=== PATIENT | male | born 1970 | race Caucasian/White ===

== ENCOUNTER → 2023-10-22 14:29 | Outpatient (REF) | payer OTHER, SELFPAY | LOC: HWRAD 14:29 | PROVIDERS: ATTENDING PHYSICIAN Surgery; FAMILY PHYSICIAN Family Medicine | DX: K63.89 Other specified diseases of intestine (principal) | CPT/HCPCS: 74177; Q9967 ==

== ENCOUNTER → 2024-06-17 14:00 | Outpatient (REF) | payer BC, SELFPAY | LOC: HWRAD 14:00 | PROVIDERS: ATTENDING PHYSICIAN Nurse Practitioner Family; FAMILY PHYSICIAN Family Medicine | DX: R10.30 Lower abdominal pain, unspecified (principal) | CPT/HCPCS: 76700; 76856 ==

== ENCOUNTER → 2024-07-07 14:27 | Outpatient (REF) | payer BC, SELFPAY | LOC: RAD 14:27 | PROVIDERS: ATTENDING PHYSICIAN Physician Assistant; FAMILY PHYSICIAN Family Medicine | DX: M25.642 Stiffness of left hand, not elsewhere classified (principal); M25.641 Stiffness of right hand, not elsewhere classified | CPT/HCPCS: 73130 ==

== ENCOUNTER → 2025-03-20 14:40 | Outpatient (REF) | payer BC, SELFPAY | LOC: RAD 14:40 | PROVIDERS: ATTENDING PHYSICIAN Surgery; FAMILY PHYSICIAN Family Medicine | DX: K63.89 Other specified diseases of intestine (principal) | CPT/HCPCS: 71260; 74177; Q9967 ==

== ENCOUNTER 2025-08-28 08:40 | Emergency (ER) | payer BC, SELFPAY ==
--- NOTE | 2025-08-28 09:50 | ED.GENMED ---
History of Present Illness
General
Chief Complaint: Musculo-Skeletal Complaint
Source: patient
Time Seen by Provider: 08/28/25 09:39
History of Present Illness
History of Present Illness:
55-year-old male presents emergency department complaints of left thumb pain for about a week. He works as a pick up truck driver and notes that the pain is gotten progressively worse with certain movements such as trying to button his pants etc. He
denies specific trauma or falls, redness, warmth, drainage, fever, chills, numbness, tingling, swelling, or other complaints. Pain is localized to the thenar eminence and sometimes in the area just between the thumb and first finger at the base of
the thumb extending/radiating on the dorsal aspect of the thumb.
Past History
Past History
ED Past Medical History: None
Social History
Tobacco: Non-smoker
Alcohol: None
Drug: None
Employment: Employed
Phy Exam
Physical Exam
Physical Exam:
GENERAL: Alert , in no apparent distress
EYE: pupils equal and reactive
NECK: Supple, no significant adenopathy.
ENT: o/p clr, mmm.
CARDIAC: Regular rate and rhythm .
LUNGS: Clear breath sounds bilaterally, no acute respiratory distress, no wheezes/rales/rhonchi
ABDOMEN: Soft, without focal tenderness, no r/g, no cvat
NEUROLOGICAL: Alert and oriented, no focal neuro deficits
SKIN: Warm and dry, skin intact.
MUSCULOSKELETAL: No edema, well perfused. No ttp of hand/thumb. Notes discomfort with certain thumb movements, but FROM, sens itnact, motor 5/5, nl cap refill. No ttp of wrist.
PSYCH: Normal and appropriate interaction.
Course
Orders/Labs/Results
Orders:
Orders
08/28/25 08:50
Thumb/Finger(s) 2 View Lt [CR Finger(s)/thumb Min 2 Vw Lt] Urgent
Comment:
Reason For Exam: pain
08/28/25 09:49
Univ. Wrist w/ Thumb Left-Tx ONCE
Ketorolac [Toradol] 15 mg IM NOW STA
Vital Signs
Initial and Last Documented VS:
Initial Vital Signs
Temp Pulse Resp Pulse Ox
97.0 F 58 18 100
08/28/25 08:45 08/28/25 08:45 08/28/25 08:45 08/28/25 08:45
Last Documented Vital Signs
Temp Pulse Resp BP Pulse Ox
97.0 F 58 18 161/79 100
08/28/25 08:45 08/28/25 08:45 08/28/25 08:45 08/28/25 11:19 08/28/25 09:56
*Pulse Oximetry
SaO2: 100
Oxygen Mode of Delivery: Room air
Patient hypoxic: no
*Critical Care Note
Total Time (30-74mins, 75-104mins- exclusive of procedures): Not Applicable
Update Note
Update Note:
Patient presents to the Emergency Department with thumb pain
Number and Complexity of Problems Addressed at the Encounter
� Chronic conditions affecting care:
� Acute Exacerbation and/or Progression of Chronic Illness:
� Differential Diagnosis includes: But not limited to cellulitis, septic arthritis, fracture, sprain, etc.
Amount and/or Complexity of Data to be Reviewed and Analyzed
� I performed an independent evaluation of and my interpretation is:
EKG:
CT:
Xrays: Read by me NAD
Laboratory Studies:
Other:
� Review of other/old records reveals:
� Clinical information was obtained by an independent historian:
� Prescriptions/Medications Considered but not given:
� Further testing considered but not performed:
Risk of Complications and/or Morbidity or Mortality of Patient Management
� Social determinants of health affecting care:
� Discussion with other providers (PCP, Hospitalists, Consultants, etc):
� Escalation of care including admission/observation vs risk of discharge considered: No signs or symptoms to suggest neurovascular compromise, infection. No fracture noted. Strongly suspect sprain. Will immobilize,
anti-inflammatories, and patient has close follow-up already arranged on Sunday.
ED Attending Note
-
Portions of this chart may have been created with voice recognition software.� Occasional wrong word or��sound alike� substitutions may have occurred due to the inherent limitations of voice recognition software.
Discharge Plan
Departure
Patient Disposition: Home (Routine Discharge)
Date of Disposition: 08/28/25
Time of Disposition: 11:22
Patient with high blood pressure during this ER visit?: Yes
Discharge Problem:
Left thumb sprain
Instructions: Sprained Thumb, BLOOD PRESSURE
Activity Restrictions/Additional Instructions:
PLEASE SEE YOUR DOCTOR IN CLOSE FOLLOW UP. IF YOU DEVELOP REDNESS/WARMTH/DRAINAGE/INCREASING OR NEW PAIN, NUMBNESS, WEAKNESS, SWELLING OR OTHER WORRISOME SIGNS, GO TO THE ER IMMEDIATELY!
Interventions
Interventions:
*General Assessment Last Done: 08/28/25 08:45
*Neglect/Abuse Screening Last Done: 08/28/25 08:45
*ED COVID-19 Vaccine History Last Done: 08/28/25 08:50
*ED Influenza Vaccine History Last Done: 08/28/25 08:45
[facility] Fall Risk Assessment Tool Last Done: 08/28/25 11:21
*Risk Screen - Suicide (C-SSRS) Last Done: 08/28/25 08:45
ED-Musculoskeletal Assessment Last Done: 08/28/25 11:15
Discharge Date and Time
Print Language: [id number]
[2025-08-28] MEDS: TORADOL 15 MG IM (10:19)
[2025-08-28 11:19] VITALS: BP 161/79
== END 2025-08-28 11:49 | disposition home or self-care (01) ==
LOC: EMR 08:40
PROVIDERS: EMERGENCY PHYSICIAN Emergency Medicine; FAMILY PHYSICIAN Family Medicine
DX: S63.602A Unspecified sprain of left thumb, initial encounter (principal); X58.XXXA Exposure to other specified factors, initial encounter
CPT/HCPCS: 99284; 96372; 29125; 73140

== ENCOUNTER → 2025-08-31 16:24 | Outpatient (REF) | payer BC, SELFPAY | LOC: RAD 16:24 | PROVIDERS: ATTENDING PHYSICIAN Nurse Practitioner Family; FAMILY PHYSICIAN Family Medicine | DX: M79.605 Pain in left leg (principal); R60.0 Localized edema; M79.662 Pain in left lower leg | CPT/HCPCS: 93971 ==